=== PATIENT | female | born 1960 | race Caucasian/White ===

== ENCOUNTER → 2025-04-21 10:29 | Outpatient (CLI) | payer OTHER, SELFPAY ==
--- NOTE | 2025-04-21 10:32 | DI.MRI.S_ITS ---
PROCEDURE: MR KNEE LT WO CON INDICATIONS: chronic knee pain TECHNIQUE: Noncontrast sagittal PD fast spin echo and T2 fast spin echo with fat saturation, sagittal 3-D FLASH with fat saturation; coronal T1 spin echo and PD fast spin echo with fat saturation, and axial PD fast spin echo with fat saturation through the knee. COMPARISON: None. FINDINGS: Image quality: Excellent. Anterior cruciate ligament: Intact. Posterior cruciate ligament: Intact. Medial collateral ligament: Intact. Lateral collateral ligament: Low-grade sprain of the distal lateral collateral ligament/conjoined tendon at the insertion of the fibular head. Medial meniscus: Partial radial tearing of the medial meniscus at the posterior root attachment with minimal extrusion of the meniscal body. Lateral meniscus: Intact. Medial and lateral tendons: The semimembranosus tendon insertions appear intact. Visualized portions of the pes anserinus tendons appear normal. The popliteus tendon is intact. Iliotibial band appears normal. Anterior structures: The quadriceps and patellar tendons appear intact. No patellar subluxation. No femoral trochlear dysplasia or ventral trochlear prominence. No edema in the infrapatellar fat pad. Bones: Mild osseous edema in the central tibial plateau adjacent to the cruciate ligament insertions Medial femorotibial cartilage: High-grade partial-thickness cartilage thinning and irregularity in the weight-bearing portion of the medial femorotibial compartment with mild subchondral edema. Lateral femorotibial cartilage: Mild partial thickness cartilage irregularity. Patellofemoral cartilage: Mild partial-thickness cartilage irregularity and shallow cartilage fissuring at the medial patellar facet and medial femoral trochlea. Soft tissues: Small joint effusion. Trace medial popliteal cyst. The musculature surrounding the knee is normal in bulk. IMPRESSION: 1. Partial radial tearing of the medial meniscus at the posterior root attachment. 2. Remote prior low-grade sprain of the distal lateral collateral ligament. 3. 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 Grade 2 chondromalacia in the lateral and anterior compartments. 4. Mild osseous edema in the central tibial plateau is nonspecific but is favored to be reactive or related to mild traction trabecular bone injury. 5. Small joint effusion. Approved by: Napoleon Benavides M.D. on 04/21/2025 at 11:45
== END ==
LOC: MRI 10:30
PROVIDERS: PCP Physician Assistant; Referring Provider Physician Assistant; Visit Provider Physician Assistant
DX: S83.242A Other tear of medial meniscus, current injury, left knee, initial encounter (principal); S83.422A Sprain of lateral collateral ligament of left knee, initial encounter; M94.262 Chondromalacia, left knee; M25.462 Effusion, left knee; M25.362 Other instability, left knee; M23.92 Unspecified internal derangement of left knee; G89.29 Other chronic pain
CPT/HCPCS: 73721